=== PATIENT | female | born 1975 | race Asian ===

== ENCOUNTER 2021-09-19 00:36 | Day surgery (SDC) | payer BC, SELFPAY ==
[2021-09-08 11:05] VITALS: BMI 24.7
--- NOTE | 2021-09-08 11:16 | PC.NURSE ---
Report to the Outpatient Waiting Room, entrance under the green pavilion located off [facility], at time 0745 on date 09/19/21. OR Time: 0945. - You and your visitor will be asked a series of questions to screen for COVID 19 for your protection. - A mask is required within the hospital. One visitor will be allowed to accompany the patient into the hospital. Patients visitor will be instructed to remain with patient at all times or leave the building. We will allow the visitor to come back to the postoperative area when patient is ready. Preoperative COVID Testing Requirements: TO BRING COPY OF CARD No COVID Test needed if: (proof is required; if not received patient will have Rapid Test prior to entry) - Patient has received COVID Vaccine at least 14 days prior to procedure date or - Patient has positive COVID test result within last 90 days of surgery date. COVID Test needed if above criteria is not met Patients may have clear liquids (water, carbonated beverages, clear teas, apple juice) until 3 hours prior to surgery with a maximum of 20 ounces. - No food from midnight until time of surgery Take the following medications with a SIP of water the morning of surgery: NONE Medications to discontinue per physician: VITAMINS Date to take last dose: 09/15/21 Please no make-up, nail namibian, hairspray, perfume, deodorant, or body powder the day of surgery. No jewelry (including any body piercings) or valuables the day of surgery, leave them at home. Please take a shower or bath the night before, or the morning of, surgery with an antibacterial soap. Wear comfortable, loose fitting clothing. - Jewelry must be removed prior to entering the operating room. Rings and piercings that are not removed may be cut off. - The hospital will not accept responsibility for valuables. - Please leave all valuables, including medications, at home the day of surgery. If you are going home after surgery, a licensed milk wagon driver must drive you home. - NO public transportation without another adult. - We recommend that an adult stay with you for 24 hours following discharge. - We also recommend that you do not drive, make important decision, drink alcoholic beverages, or take any drugs that were not prescribed by your health care provider for at least 24 hours after your discharge time. Follow any additional instructions given to you from your surgeon. Telephone instructions given to REJI REBOLLEDO and asked if any additional questions and then verbalized understanding. Patient advised to call surgeon office or pre surgery nurse liaison [phone] if any additional questions.
--- NOTE | 2021-09-19 07:11 | WPDANESEPPF ---
Anes - Initial Pre Proc Eval Procedure: Operation Date: 09/19/21 09:45 Proposed Procedures p Hysteroscopy Dilation and Curettage - Florencia Chavez MD Date/Time: 09/19/21 07:11 Surgeon: Florencia Chavez MD Pre Op Diagnosis: menorrhagia Patient Data Age: 46 Gender: F Height: 1.57 m Weight: 61.24 kg Allergies Allergy/AdvReac Type Severity Reaction Status Date / Time No Known Allergies Allergy Verified 09/19/21 08:25 Home Medications Medication Instructions Recorded Confirmed Type vitamin B complex 1 tablet PO DAILY 09/08/21 09/19/21 History Patient hx anesthesia problems: none Family hx anesthesia problems: none Results Review: All pre-operative results and documents have been reviewed as part of the pre-operative evaluation. [facility], LAT[facility] Past Medical History Medical History (Updated 09/19/21 @ 07:58 by Florencia Chavez MD) Asthma Surgical History Surgical History (Updated 09/19/21 @ 07:58 by Florencia Chavez MD) History of bilateral tubal ligation History of x2 Social History Social History Smoking status: Never smoker Alcohol intake: never Substance use: never Substance use type: does not use Living arrangements: with family Spiritual care concerns: No Anes - Eval Final PreProcedure Day of Procedure 09/19/21 07:11 Patient weight: normal Heart: regular rate and rhythm Lungs: clear to auscultation and normal air movement Airway: Mallampati scale class II Neurological: alert and oriented Last oral intake: >/= 8 hours ASA classification: II Emergent: no Anesthetic plan: proceed Anesthesia type and monitoring: general GIVS and standard monitoring Results Review: All pre-operative results and documents have been reviewed as part of the pre-operative evaluation. Informed Consent: The patient's anesthetic plan and its attendant risks and benefits were discussed with the patient/family/POA. Questions were solicited and answers provided to the satisfaction of the patient/family/POA.
--- NOTE | 2021-09-19 07:41 | WPDHPUPDATE1 ---
History and Physical Update Update Date/Time: 09/19/21 07:41 History and Physical has been reviewed, including an updated exam of the patient. There are NO changes in the patient's condition. Risks, benefits, and alternatives have been discussed and questions answered. Patient agrees to proceed with procedure.
--- NOTE | 2021-09-19 07:41 | PM.HPGS ---
History of Present Illness History of Present Illness Consent: Risks, benefits, and alternatives have been discussed and questions answered. Patient agrees to proceed with procedure. Chief complaint: menorrhagia Narrative: Maggy Gonzales is a 46 year old female with cycles every 20 to 22 days lasting for 6 to 7 days that are quite heavy. Patient passes large clots and changes a pad every 20 to 30 minutes for the 1st 2 to 3 days. Patient reports this started approximately 5 months ago. Patient's primary physician performed lab studies which revealed no anemia but low iron stores. It was recommended to proceed with D&C hysteroscopy. Risks of infection, bleeding, and perforation were reviewed. Possible pathology was discussed. Patient voices understanding and agrees to proceed. Review of Systems Musculoskeletal: Musculoskeletal: Reports arthralgias Neurologic: Reports headache(s) [facility] Past Medical History Medical History (Updated 09/19/21 @ 07:58 by Florencia Chavez MD) Asthma Surgical History Surgical History (Updated 09/19/21 @ 07:58 by Florencia Chavez MD) History of bilateral tubal ligation History of x2 Social History Social History Smoking status: Never smoker Alcohol intake: never Substance use: never Substance use type: does not use Living arrangements: with family Spiritual care concerns: No Meds Home Medications and Allergies Home Medications Medication Instructions Recorded Confirmed Type vitamin B complex 1 tablet PO DAILY 09/08/21 09/08/21 History Allergies Allergy/AdvReac Type Severity Reaction Status Date / Time No Known Allergies Allergy Verified 09/08/21 11:03 Exam Const: General: healthy appearing and alert Orientation/consciousness: patient oriented x3 Resp: Effort & Inspection: normal respiratory effort Auscultation: clear to auscultation bilaterally Cardio: Rate: regular rate Rhythm: regular rhythm GI: GI Palp: Yes Soft to palpation, No Tenderness to palpation present (GI) and No Palpable mass present : External Female Exam: normal external appearance Speculum Exam - Vagina: normal appearance of the vagina and normal vaginal discharge Speculum Exam - Cervix: normal appearance of the cervix Bimanual exam- vagina & uterus: uterine size normal and consistency normal Bimanual Exam- Adnexa, other: normal adnexae and No adnexal tenderness Neuro: General: patient oriented x3 Assessment and Plan Assessment and plan (1) Menorrhagia: Code(s): N92.0 - Excessive and frequent menstruation with regular cycle Status: Acute Assessment and Plan: Plan to proceed with D&C hysteroscopy
[2021-09-19 08:10] VITALS: BP 115/74; PULSE 71; RESP 16; TEMP 36.2; O2SAT 100
[2021-09-19] MEDS: ACETAMINOPHEN 500 MG TABLET 1000 MG PO (08:24)
[2021-09-19] MEDS: LACTATED RINGERS 1,000 ML 30 ML IV CONT (08:33)
--- NOTE | 2021-09-19 09:58 | W.PM.PROC2 ---
Procedure Note - Detailed Date of Procedure 09/19/21 Pre-op Diagnosis menorrhagia Post-op Diagnosis Same Procedure Performed D&C hysteroscopy Surgeon Florencia Chavez MD Anesthesia MAC and Local Findings Uterus sounds to 9cm and appears grossly Description of Procedure The patient is taken to the operating room and placed under anesthesia in the dorsal lithotomy position. She was prepped and draped in the usual sterile fashion. Lawrence speculum was placed in the vagina and the cervix is grasped on the anterior lip with a tenaculum. The cervix is injected in each quadrant with lidocaine. The uterus is sounded to 9cm. The cervix is serially dilated to an 8 Hegar. The diagnostic hysteroscope is placed with the above-stated findings. The hysteroscope was removed and the medium sharp curette used to curette the endometrium until a good uterine cry was noted in all areas. All instruments were then removed. Sponge, needle, and instrument counts are correct per the OR staff. Patient is awakened from anesthesia and taken to recovery in stable condition. Estimated Blood Loss 5 Drains No Packing No Pathology Yes (Endometrial curettings) Complications No immediate complications Condition Stable Disposition PACU
[2021-09-19 10:01] VITALS: BP 109/65; PULSE 70; RESP 12; O2SAT 95
[2021-09-19 10:30] VITALS: BP 116/73; PULSE 65; RESP 16; O2SAT 99
[2021-09-19 11:00] VITALS: BP 117/72; PULSE 64; RESP 14
== END 2021-09-19 11:19 | disposition home or self-care (01) ==
PROVIDERS: PCP Family Medicine; Visit Provider Obstetrics & Gynecology Gynecology
PROC: 0U5B8ZZ Destruction of Endometrium, Via Natural or Artificial Opening Endoscopic (ICD-10-PCS; CPT 58563; principal; 2021-09-19 09:45)
DX: N92.0 Excessive and frequent menstruation with regular cycle (principal)
CPT/HCPCS: 58558; 88305; A9270; J1100; J1885; J2250; J2405; J2704; J3010; J7030; J7120